=== PATIENT | female | born 1975 | race Caucasian/White ===

== ENCOUNTER 2020-05-08 15:41 | Outpatient (CLI) | payer BC | END 2020-05-08 15:42 | disposition home or self-care (01) | LOC: COV 15:41 | PROVIDERS: ATTEND Family Medicine | DX: R53.83 Other fatigue (principal); J02.9 Acute pharyngitis, unspecified; R09.81 Nasal congestion; Z20.828 Contact with and (suspected) exposure to other viral communicable diseases ==

== ENCOUNTER 2020-07-06 08:44 | Outpatient (CLI) | payer BC | END 2020-07-06 08:45 | disposition critical access hospital (66) | LOC: EMS 08:44 | PROVIDERS: ATTEND Surgery | DX: S89.92XA Unspecified injury of left lower leg, initial encounter (principal); W01.0XXA Fall on same level from slipping, tripping and stumbling without subsequent striking against object, initial encounter; Y93.02 Activity, running; Y92.89 Other specified places as the place of occurrence of the external cause | CPT/HCPCS: A0425; A0429 ==

== ENCOUNTER 2020-07-06 08:54 | Day surgery (SDC) | payer BC ==
[2020-07-06] MEDS ORDERED: HYDROmorphone 1 MG/ML CARPUJECT IVP STA (09:01)
[2020-07-06] MEDS ORDERED: ceFAZolin 1 GM in SODIUM CHLORIDE 0.9% MINIBAG 100 ML IV STA (09:02)
--- NOTE | 2020-07-06 09:03 | ED Physician Documentation ---
PD HPI LOWER EXT INJURY - Stated complaint Stated Complaint: FALL - History obtained from History obtained from: Patient, EMS - History of Present Illness PD HPI LOW EXT INJURY LOCATION: Left, Lower leg, Ankle Type of injury: Fall (slipped on ground when chasing after cat. Isolated injury to left lower leg above ankle.) Where injury occurred: Home Timing - onset: Today (just [employer]), Other (Had not had breakfast yet.) Timing - details: Abrupt onset, Still present Worsened by: Moving, Palpating, Other (unable to move even a little, not tried to stand or walk. Called EMS and brought here splinted.) Associated symptoms: No: Weakness, Numbness Contributing factors: No: Anticoagulated, Prior ortho surgery, Work related Similar symptoms before: Has not had sx before Recently seen: Not recently seen Review of Systems Constitutional: denies: Fever Nose: denies: Rhinorrhea / runny nose, Congestion Throat: reports: Sore throat (mild for several days, without adenopathy nor cough) Respiratory: denies: Cough GI: denies: Nausea, Vomiting, Diarrhea Skin: reports: Laceration (s) (has small opening on front lower leg.) Neurologic: denies: Focal weakness, Numbness PD PAST MEDICAL HISTORY - Past Medical History Cardiovascular: None Respiratory: None Neuro: None Endocrine/Autoimmune: None - Allergies Allergies/Adverse Reactions: Allergies Allergy/AdvReac Type Severity Reaction Status Date / Time NSAIDS (Non-Steroidal Allergy Unknown Verified 07/06/20 09:03 Anti-Inflamma - Living Situation Living Arrangement: reports: At home - Social History Does the pt smoke?: No Does the pt have substance abuse?: No - Family History Family history: reports: Non contributory PD ED PE NORMAL - Vitals Vital signs reviewed: Yes - General General: Alert and oriented X 3, Well developed/nourished, Other (appears in pain with any slight leg movement. ) - HEENT HEENT: Atraumatic - Neck Neck: Supple, no meningeal sign, No bony TTP - Cardiac Cardiac: RRR, No murmur - Respiratory Respiratory: Clear bilaterally, Other (no chestwall tenderness) - Abdomen Abdomen: Soft, Non tender - Derm Derm: Normal color, Warm and dry - Extremities Extremities: Other (Considerable tenderness with even slight movement in the mid lower leg on the left. There is angulation deformity with the foot and toes being about 15 to 20 degrees offline from the knee. There is a small circular puncture wound appearing in the lower third anterior tibia overlying the tenderness) - Neuro Neuro: Alert and oriented X 3, No motor deficit (Able to feel sensation in her toes and wiggle.), No sensory deficit, Normal speech Eye Opening: Spontaneous Motor: Obeys Commands Verbal: Oriented GCS Score: 15 Results - Vitals Vitals: Vital Signs - 24 hr 07/06/20 07/06/20 09:01 09:07 Temperature 36.9 C Heart Rate 65 76 Respiratory 22 17 Rate Blood Pressure 101/66 114/68 O2 Saturation 99 99 Oxygen O2 Source Room air - Rads (name of study) tib/fib Radiology: Prelim report reviewed (Spiral fractures of distal third tibia and proximal third fibula. ), See rad report PD MEDICAL DECISION MAKING - ED course Complexity details: reviewed results, considered differential, d/w patient, d/w qa consultant (Dr. Rudd, Ortho, who will come see the patient. ) Departure - Departure Disposition: ED Transfer to [facility] Clinical Impression: Fall from slip, trip, or stumble Qualifiers: Encounter type: initial encounter Qualified Code(s): W01.0XXA - Fall on same level from slipping, tripping and stumbling without subsequent striking against object, initial encounter Open tibial fracture Qualifiers: Encounter type: initial encounter Tibia location: shaft Open fracture type: open type I or II Fracture morphology: spiral Fracture alignment: displaced Laterality: left Qualified Code(s): S82.242B - Displaced spiral fracture of shaft of left tibia, initial encounter for open fracture type I or II Condition: Stable Record reviewed to determine appropriate education?: Yes
[2020-07-06] MEDS ORDERED: LACTATED RINGERS 1,000 ML IV STA (09:24)
[2020-07-06] MEDS ORDERED: ACETAMINOPHEN 1,000 MG/100 ML 100 ML IV ONE ×3 (09:25→12:39)
[2020-07-06 09:29] LABS: BASOPHILS # (AUTO) 0.1 10^3/uL (0.0-0.1); BASOPHILS % (AUTO) 0.7 %; EOSINOPHILS % (AUTO) 0.4 %; HGB - HEMOGLOBIN 14.3 g/dL (12.0-16.0); LYMPHOCYTES # (AUTO) 1.9 10^3/uL (1.5-3.5); LYMPHOCYTES % (AUTO) 26.3 %; MEAN CORPUSCULAR HEMOGLOBIN 28.7 pg (27.0-31.0); MEAN CORPUSCULAR HGB CONC 32.9 g/dL (32.0-36.0); MEAN PLATELET VOLUME 11.1 fL (7.9-10.8); MONOCYTES # (AUTO) 0.5 10^3/uL (0.0-1.0); MONOCYTES % (AUTO) 6.2 %; NEUTROPHILS # (AUTO) 4.8 10^3/uL (1.5-6.6); NEUTROPHILS % (AUTO) 65.8 %; PLT - PLATELET COUNT 256 10^3/uL (130-450); RED BLOOD COUNT 4.99 10^6/uL (4.20-5.40); RED CELL DISTRIBUTION WIDTH 12.5 % (12.0-15.0); WHITE BLOOD COUNT 7.3 x10^3/uL (4.8-10.8)
[2020-07-06 09:38] LABS: CALCIUM 8.8 mg/dL (8.5-10.3); CREATININE 0.8 mg/dL (0.4-1.0)
--- NOTE | 2020-07-06 09:44 | XRAY Report ---
PROCEDURE: Tib/Fib LT INDICATIONS: fall with lower leg pain, above ankle TECHNIQUE: 2 views of the tibia and fibula were acquired. COMPARISON: None. FINDINGS: Bones: There is a mildly displaced spiral fracture of the distal tibial shaft. There is also a mildl y displaced fracture of the proximal fibular shaft. No suspicious bony lesions. Soft tissues: No suspicious soft tissue calcifications or masses. IMPRESSION: 1. Fractures of the tibial and fibular shafts. Reviewed by: Boni Rodney MD on 07/06/2020 9:43 AM [facility] Approved by: Boni Rodney MD on 07/06/2020 9:43 AM [facility] Station ID: [id number]
[2020-07-06 10:25] LABS: C. PNEUMONIAE- RESP PCR PANEL NOT DETECTED
--- NOTE | 2020-07-06 10:50 | ANESTHESIA ---
Pre-Anesthesia VS, & Labs - Diagnosis open tibial fracture left - Procedure ORIF left open tibial fracture Vital Signs: Temp Pulse Resp BP Pulse Ox 36.9 C 69 18 124/76 98 07/06/20 10:40 07/06/20 10:40 07/06/20 10:40 07/06/20 10:40 07/06/20 10:40 Height: 5 ft 2 in Weight (kg): 65.771 kg Body Mass Index: 26.5 BMI Classification: Overweight - NPO >8 hours - Is Patient ?: No - Lab Results Current Lab Results: Laboratory Tests 07/06/20 09:27: Sodium 141, Potassium 4.3, Chloride 107, Carbon Dioxide 21, Anion Gap 13.0, BUN 9, Creatinine 0.8, Estimated GFR (MDRD) 78 L, Glucose 102 H, Calcium 8.8 07/06/20 09:27: WBC 7.3, RBC 4.99, Hgb 14.3, Hct 43.4, MCV 87.0, MCH 28.7, MCHC 32.9, RDW 12.5, Plt Count 256, MPV 11.1 H, Neut # (Auto) 4.8, Lymph # (Auto) 1.9, Grant # (Auto) 0.5, Eos # (Auto) 0.0, Baso # (Auto) 0.1, Absolute Nucleated RBC 0.00, Nucleated RBC % 0.0 Fish Bones: 07/06/20 09:27 07/06/20 09:27 Home Medications and Allergies Active Medications Lactated Ringer's (Lr) 1,000 mls @ 500 mls/hr IV .Q2H STA Stop: 07/06/20 11:23 Last Admin: 07/06/20 10:11 Dose: 500 mls/hr Documented by: Allergies/Adverse Reactions: Allergies Allergy/AdvReac Type Severity Reaction Status Date / Time NSAIDS (Non-Steroidal Allergy Unknown Verified 07/06/20 09:03 Anti-Inflamma Anes History & Medical History - Anesthetic History Anesthesia Complications: reports: No previous complications - Medical History Cardiovascular: reports: None Pulmonary: reports: None Gastrointestinal: reports: None Urinary: reports: None Neuro: reports: None Endocrine/Autoimmune: reports: None, Other (tibia fracture) Smoking Status: Never smoker - Surgical History Orthopedic: Other (shoulder surgery in past, ORIF right arm) Results - Other Other Results/Comments: waiting rapid covid Exam General: Alert Dental: WNL Mouth Opening: Greater than 4 Fingerbreadths Mallampati classification: I Thyromental Distance: greater than 6 cm Respiratory: Lungs clear Cardiovascular: Regular rate Plan Anesthesia Type: General, Popliteal Block Consent for Procedure(s) Verified and Reviewed: Yes Code Status: Attempt Resuscitation ASA classification: 1-Healthy patient Is this case an emergency?: Yes (open fracture)
--- NOTE | 2020-07-06 11:30 | CONSULTATION NOTE ---
Referring Provider Consult Date: 07/06/20 History - Past Medical History Cardiovascular: reports: None Respiratory: reports: None Neuro: reports: None Endocrine/Autoimmune: reports: None, Other (tibia fracture) GI: reports: None : reports: None MRSA Hx?: No - Past Surgical History Ortho: reports: Other (shoulder surgery in past, ORIF right arm) - Family & Social History Living arrangement: At home - POLST Patient has POLST: No Meds/Allgy - Allergies Allergies/Adverse Reactions: Allergies Allergy/AdvReac Type Severity Reaction Status Date / Time NSAIDS (Non-Steroidal Allergy Unknown Verified 07/06/20 09:03 Anti-Inflamma Exam - Vital Signs Vital Signs: Vital Signs x48h Temp Pulse Resp BP Pulse Ox 07/06/20 11:03 70 18 129/75 98 07/06/20 10:40 36.9 C 69 18 124/76 98 07/06/20 10:04 37.3 C 73 18 119/76 98 07/06/20 09:34 16 113/83 H 97 07/06/20 09:07 76 17 114/68 99 07/06/20 09:01 36.9 C 65 22 101/66 99 Conclusion/Plan - Lab Results Fish Bones: 07/06/20 09:27 07/06/20 09:27
--- NOTE | 2020-07-06 11:34 | CONSULTATION NOTE ---
Referring Provider Consult Date: 07/06/20 Chief Complaint - Chief Complaint Chief Complaint: Left lower leg pain History of Present Illness - Admitted From Admitted From:: ER - History Obtained From History obtained from: Patient - History of Present Illness HPI Comment/Other: I saw this healthy 45-year-old in consultation in the emergency room with regards to her left lower leg injury. She slipped and sustained a twisting injury to the lower leg. Immediate onset of the lower leg. Obvious deformity. There was a small open wound at the distal third. Unable to weight-bear.She was seen in the emergency room, where radiographs revealed a left tib-fib fracture. She received intravenous antibiotics. Denies any numbness or tingling to the foot. Denies any calf pain. 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 : reports: None HEENT: reports: None Psych: reports: None Musculoskeletal: reports: None Derm: reports: None MRSA Hx?: No - Past Surgical History Ortho: reports: Other (shoulder surgery in past, ORIF right arm) - Family & Social History Living arrangement: At home - POLST Patient has POLST: No Meds/Allgy - Allergies Allergies/Adverse Reactions: Allergies Allergy/AdvReac Type Severity Reaction Status Date / Time NSAIDS (Non-Steroidal Allergy Severe Unknown Verified 07/06/20 11:34 Anti-Inflamma Review of Systems - Other Findings Other Findings: Complete 12 point review of systems is otherwise negative Exam - Vital Signs Reviewed Vital Signs: Yes Vital Signs: Vital Signs x48h Temp Pulse Resp BP Pulse Ox 07/06/20 11:03 70 18 129/75 98 07/06/20 10:40 36.9 C 69 18 124/76 98 07/06/20 10:04 37.3 C 73 18 119/76 98 07/06/20 09:34 16 113/83 H 97 07/06/20 09:07 76 17 114/68 99 07/06/20 09:01 36.9 C 65 22 101/66 99 - Physical Exam General Appearance: positive: No acute distress, Alert Eyes Bilateral: positive: Normal inspection, PERRL ENT: positive: ENT inspection nml, Pharynx nml, No signs of dehydration Neck: positive: Nml inspection, Thyroid nml, No JVD, Trachea midline Respiratory: positive: Chest non-tender, No respiratory distress, Breath sounds nml Cardiovascular: positive: Regular rate & rhythm, No murmur, No gallop Peripheral Pulses: positive: 2+ Abdomen: positive: Non-tender Skin: positive: Other (Small punctate inside out wound at the junction of the mid and distal thirds of the tibia) Extremities: positive: Other (Minimal deformity. Tender at the junction of the mid and distal third tibia, junction of mid and proximal thirds of the fibula. Normal knee and ankle examination.Compartments are soft.) Neurologic/Psychiatric: positive: Oriented x3, Motor nml, Sensation nml Conclusion/Plan - Diagnosis Diagnosis: Open left tibia and fibular fractures - Plan Plan: We have discussed both operative and non-operative management today. I have recommended intramedullary nailing of the left tibia.We have discussed the pros and cons of surgery, including but not limited to the risk of ongoing pain, infection, blood loss, and nerve or blood vessel damage. We have also discussed strategies for prevention of infection, perioperative pain management and prevention of blood clots. She has and anaphylaxis to anti-inflammatories, and will therefore require either Lovenox or Xarelto for DVT prophylaxis postoperativelyAfter discussion of the risks and benefits of surgery, the patient has elected to proceed with Left tibia intramedullary nailing. We have discussed the risk of compartment syndrome and potential need for fasciotomies.Consent has been signed and patient has been marked - Lab Results Fish Bones: 07/06/20 09:27 07/06/20 09:27 - Diagnostic Imaging Results Diagnostic Imaging Results: positive: Read independently (I personally reviewed the radiographic images. Short oblique fracture of the tibia at the junction of mid and distal thirds with associated fibular fracture)
[2020-07-06] MEDS ORDERED: GABAPENTIN 300 MG CAPSULE PO SCH (12:00)
[2020-07-06] MEDS ORDERED: DEXAMETHASONE 4 MG/ML VIAL IVP ONE (12:39)
[2020-07-06] MEDS ORDERED: KETAMINE 500 MG/10 ML VIAL IVP ONE (12:39)
[2020-07-06] MEDS ORDERED: LIDOCAINE-MPF 2% 5 ML VIAL IM ONE (12:39)
[2020-07-06] MEDS ORDERED: ONDANSETRON 4 MG/2 ML VIAL IVP ONE (12:39)
[2020-07-06] MEDS ORDERED: fentaNYL 100 MCG/2 ML VIAL IVP ONE (12:39)
[2020-07-06] MEDS ORDERED: MIDAZOLAM 2 MG/2 ML VIAL IVP ONE (12:39)
[2020-07-06] MEDS ORDERED: PROPOFOL 200 MG/20 ML VIAL IVP ONE (12:39)
[2020-07-06] MEDS ORDERED: ceFAZolin 2 GM in SODIUM CHLORIDE 0.9% 100ML 100 ML IV ONE ×2 (13:00→21:00)
[2020-07-06] MEDS ORDERED: ROPIVACAINE 0.5% PF 20 ML AMPULE ONE (13:25)
[2020-07-06] MEDS ORDERED: ROPIVACAINE 0.5% PF 20 ML AMPULE SUBQ ONE ×3 (13:26→14:00)
[2020-07-06] MEDS ORDERED: LACTATED RINGERS 1,000 ML IV ONE ×2 (14:22→15:00)
--- NOTE | 2020-07-06 14:24 | OPERATIVE REPORT ---
Operative Report - General Procedure Date: 07/06/20 Planned Procedure: 1. Irrigation and debridement left lower leg 2. Intramedullary nailing left tibia Pre-Op Diagnosis: Open left tibia and fibular fractures Procedure Performed: Same Post Op Diagnosis: Grade 1 compound fracture left tibia with associated fibular fracture - Procedure Note Primary Surgeon: Tobin Anesthesia Technique: General ET tube Estimated Blood Loss (mL): 150 Findings: Implant: [employer] tibial nail 8.5 x 320 mm - Other Other Information/Narrative: Preamble: this healthy 45-year-old has a twisting injury to the left ankle, sustaining an open fracture of her left tibia and fibula. Patient was seen in the emergency room. She received intravenous antibiotics for prophylaxis of infection. Risks and benefits of surgery were discussed and the patient agreed to proceed with intramedullary nailing. Surgical site was confirmed and marked. Consent was signed. Operative note: Patient was brought to the operating room and general anesthetic was administered. Placed in supine position on the table. Tourniquet around the left thigh. Patient received intravenous antibiotics for prophylaxis of infection. Leg was then prepped and draped in usual sterile fashion. Surgical timeout was completed, verifying patient procedure and side. Small inside-out puncture wound was then extended proximally and distally slightly to expose the fracture site. Bone ends were brushed With a sterile toothbrush. Wound was then thoroughly irrigated with 3 L normal saline on gravity. Small stab incision was then made over the anterolateral lower leg and reduction clamp was then applied to reduce the fracture. Longitudinal incision was then made over the patellar tendon. Patellar tendon divided in line with its fibers in the midline. Guidewire was then advanced into proximal tibia under fluoroscopic guidance. Position was confirmed on fluoroscopy. Proximal tibia was then reamed. [place]-tipped guidewire was then advanced down the tibial canal to the level of the ankle. Position was confirmed on fluoroscopy. Measured to the 330 mm. The tibia was then sequentially reamed up to a final 10 mm reamer. An 8.5x3 and 20 mm nail was in selected and fully seated using a mallet. Position and reduction confirmed on fluoroscopy. Distally a single anterior to posterior locking screw was then inserted. Nail was backed up to compress the fracture site. Proximally using the target device a single static oblique locking screw was then placed. Again position and reduction was confirmed on fluoroscopy. Wounds thoroughly irrigated normal saline. Distally incisions were closed with kashmir. Locking screw stab incisions closed with k[place]mir. Patellar tendon split closed with #1 Vicryl. Skin closed with kashmir. Incisional sites and knee itself were infiltrated with ropivacaine. Sterile dressings were then applied. Patient was transferred to regular hospital bed taken to recovery room stable condition with no intraoperative complications. Estimate blood loss ap proximately 150 cc. Postoperative plan: Check x-ray in recovery. Admit for observation overnight and due to risk of compartment syndrome. Ice and elevate the leg. Weightbearing as tolerated. Discharge home tomorrow. Patient will require either Xarelto or Lovenox for DVT prophylaxis given her Anaphylaxis to anti- inflammatories. Oral antibiotics for 1 week for prophylaxis against infection given the open nature of the fracture.Follow-up in 10 to 14 days For wound check.Follow-up in 6 weeks with radiographs of the left tib-fib.
[2020-07-06] MEDS ORDERED: HYDROmorphone 2 MG/ML VIAL IVP PRN (14:25)
[2020-07-06] MEDS ORDERED: oxyCODONE 5 MG TABLET PO PRN (14:25)
[2020-07-06] MEDS ORDERED: MORPHINE 2 MG/ML CARPUJECT IVP PRN (14:33)
[2020-07-06] MEDS ORDERED: HYDROmorphone 0.5 MG/0.5 ML SYRINGE IVP PRN (14:33)
[2020-07-06] MEDS ORDERED: ePHEDrine 50 MG/ML VIAL IVP PRN (14:33)
[2020-07-06] MEDS ORDERED: ONDANSETRON 4 MG/2 ML VIAL IVP PRN (14:33)
[2020-07-06] MEDS ORDERED: METOCLOPRAMIDE 10 MG/2 ML VIAL IVP PRN (14:33)
[2020-07-06] MEDS ORDERED: NALOXONE 0.4 MG/ML VIAL IVP PRN (14:33)
[2020-07-06] MEDS ORDERED: ATROPINE ABBOJECT 1 MG/10 ML SYRINGE IVP PRN (14:33)
[2020-07-06] MEDS ORDERED: fentaNYL 100 MCG/2 ML VIAL IVP PRN (14:33)
[2020-07-06] MEDS ORDERED: HYDROmorphone 0.5 MG/0.5 ML SYRINGE ONE ×2 (14:40→14:46)
--- NOTE | 2020-07-06 14:40 | ANESTHESIA POST OP EVALUATION ---
Anesthesia Post Eval - Post Anesthesia Eval Vitals: Last Vital Signs Temp 37.4 C 07/06/20 14:35 Pulse 68 07/06/20 14:35 Resp 12 07/06/20 14:35 BP 127/79 07/06/20 14:35 Pulse Ox 100 07/06/20 14:35 CV Function Including HR & BP: positive: Stable Pain Control: positive: Satisfactory Nausea & Vomiting: positive: Negative Mental Status: positive: Patient Participates Respiratory Status: Airway Patent Hydration Status: Satisfactory Anesthesia Complications: positive: None
[2020-07-06] MEDS ORDERED: LACTATED RINGERS 1,000 ML IV SCH (15:00)
--- NOTE | 2020-07-06 16:24 | XRAY Report ---
PROCEDURE: OR C-Arm Procedure INDICATIONS: ORIF LEFT TIBIA TECHNIQUE: 5 views, intraoperative, documenting placement of a long medullary shagufta from proximal tibia almost to the ankle joint level. COMPARISON: 07/06/2020 tibia/fibula plain films reviewed.. FINDINGS: The medullary shagufta is centrally positioned through the tibia, crossing the area of diagonal fracture i nvolving the junction of the middle and distal thirds of the tibia, with a transverse fixation screw superiorly establishing fixed position with the fracture planes in virtual anatomic alignment for porsha ling. IMPRESSION: Excellent anatomic alignment established by medullary shagufta, fixed superiorly, crossing the fracture pl ane through the distal tibia, for healing. Reviewed by: Arsen Hutchison MD on 07/06/2020 4:23 PM PST Approved by: Arsen Hutchison MD on 07/06/2020 4:23 PM PST Station ID: [id number]
[2020-07-06] MEDS: ACETAMINOPHEN 500 MG TABLET PO SCH (16:27)
[2020-07-06] MEDS: LACTATED RINGERS 1,000 ML IV SCH (16:30)
--- NOTE | 2020-07-06 16:41 | XRAY Report ---
PROCEDURE: Tib/Fib LT INDICATIONS: postop TECHNIQUE: 2 views of the tibia and fibula were acquired. COMPARISON: None FINDINGS: Bones: Multiple views of the right tibia and fibula were performed status post intramedullary shagufta fix ation of a distal tibial fracture. There is also a minimally displaced fracture of the proximal fibul a. Intramedullary shagufta appears in good position with anatomic alignment of the tibia. Soft tissues: N o suspicious soft tissue calcifications or masses. IMPRESSION: Postoperative changes of ORIF of the left tibia. Reviewed by: Stefano Sung on 07/06/2020 4:40 PM PST Approved by: Stefano Sung on 07/06/2020 4:40 PM PST Station ID: [id number]
[2020-07-06] MEDS: oxyCODONE 5 MG TABLET PO PRN ×2 (19:36→20:58)
[2020-07-07] MEDS: ACETAMINOPHEN 500 MG TABLET PO SCH ×3 (02:30→13:04)
[2020-07-07] MEDS: LACTATED RINGERS 1,000 ML IV SCH (02:30)
[2020-07-07] MEDS: oxyCODONE 5 MG TABLET PO PRN ×2 (08:17→10:08)
[2020-07-07] MEDS ORDERED: DOCUSATE SODIUM 250 MG CAPSULE PO SCH (09:00)
[2020-07-07] MEDS ORDERED: SENNA 8.6 MG TABLET PO SCH (09:00)
[2020-07-07] MEDS ORDERED: RIVAROXABAN 10 MG TABLET PO STA (11:02)
--- NOTE | 2020-07-07 11:34 | PROVIDER PROGRESS NOTE ---
Subjective - Prog Note Date Prog Note Date: 07/07/20 - Subjective Pt reports feeling: Improved (Pain reasonably well controlled. No numbness or tingling to the foot. Denies any calf pain.) Objective - Vital Signs/Intake & Output Reviewed Vital Signs: Yes Vital Signs: Vital Signs x48h Temp Pulse Resp BP Pulse Ox 07/07/20 10:00 36.4 C L 69 18 102/62 100 Intake & Output: Intake & Output 07/04/20 07/05/20 07/06/20 07/07/20 23:59 23:59 23:59 23:59 Intake Total 1759 1000 Output Total 700 1100 Balance 1059 -100 - Objective General Appearance: positive: No acute distress Eyes Bilateral: positive: Normal inspection Respiratory: positive: No respiratory distress Cardiovascular: positive: Regular rate & rhythm Skin: positive: Other (dressings intact) Extremities: positive: Other (Ankle and knee motion well-tolerated. Compartments are supple and nontender. No pain with passive stretch.) Neurologic/Psychiatric: positive: Oriented x3, Motor nml, Sensation nml - Lab Results Fish Bones: 07/06/20 09:27 07/06/20 09:27 Assessment/Plan - Problem List (1) Open tibial fracture Impression: Doing well postop day 1. No signs of compartment syndrome. Mobilizing with physical therapy.Discharge home today. Ice and elevate the leg. Boot for comfort only. Weightbearing as tolerated. No restrictions to activity. Oral Keflex and Xarelto on discharge. Follow-up in 10 to 14 days for wound check and removal of kashmir. Follow-up in 6 weeks with radiographs of the Lower leg Qualifiers: Encounter type: initial encounter Tibia location: shaft Open fracture type: open type I or II Fracture morphology: spiral Fracture alignment: displaced Laterality: left Qualified Code(s): S82.242B - Displaced spiral fracture of shaft of left tibia, initial encounter for open fracture type I or II
[2020-07-07 13:15] VITALS: BP 109/69
== END 2020-07-07 13:00 | disposition home or self-care (01) ==
LOC: EDUNIT# → ED 08:54 → SDS 11:48 → MS2 13:28 → SDS 07-07 13:00
PROVIDERS: ATTEND Orthopaedic Surgery
DX: S82.242B Displaced spiral fracture of shaft of left tibia, initial encounter for open fracture type I or II (principal); S82.832B Other fracture of upper and lower end of left fibula, initial encounter for open fracture type I or II; W01.0XXA Fall on same level from slipping, tripping and stumbling without subsequent striking against object, initial encounter; Z20.828 Contact with and (suspected) exposure to other viral communicable diseases
CPT/HCPCS: 0202U; 27759; 36415; 73590; 80048; 85025; 96365; 96375; 97161; 99284; 99285; A9270; J0131; J1170; J7120

== ENCOUNTER 2020-09-03 09:30 | Outpatient (CLI) | payer BC ==
--- NOTE | 2020-09-03 14:57 | XRAY Report ---
PROCEDURE: Tib/Fib LT INDICATIONS: POST OP CARE TECHNIQUE: 2 views of the tibia and fibula were acquired. COMPARISON: Left lower leg radiographs dated 07/06/2020 FINDINGS: Bones: Postsurgical changes are again seen from tibial fracture fixation with an intramedullary nail with proximal and distal locking screws. Lucency is again seen along the distal tibial fracture line with stable alignment. The previously seen proximal fibular shaft fracture demonstrates mild callus f ormation, compatible with interval healing changes. Portions of the fibular fracture line are still v isualized. Soft tissues: No suspicious soft tissue calcifications or masses. IMPRESSION: Stable postsurgical changes from distal tibial fracture fixation with unchanged alignment. Mild progr essive healing changes are seen in the distal tibial and proximal fibular fractures with continued vi sualization of the fracture lines. Reviewed by: Leoncio Quijano MD on 09/03/2020 2:56 PM PST Approved by: Leoncio Quijano MD on 09/03/2020 2:56 PM PST Station ID: [id number]
== END 2020-09-03 23:59 | disposition home or self-care (01) ==
LOC: DI.N 09:30
PROVIDERS: ATTEND Physician Assistant
DX: Z48.89 Encounter for other specified surgical aftercare (principal); S82.302D Unspecified fracture of lower end of left tibia, subsequent encounter for closed fracture with routine healing; S82.832D Other fracture of upper and lower end of left fibula, subsequent encounter for closed fracture with routine healing

== ENCOUNTER 2021-01-17 13:29 | Outpatient (CLI) | payer BC ==
--- NOTE | 2021-01-18 11:56 | Mammography Report ---
BILATERAL DIGITAL SCREENING MAMMOGRAM 3D/2D: 01/17/2021 CLINICAL: Routine screening. Comparison is made to exam dated: 04/06/2019 mammogram. The tissue of both breasts is heterogeneousl y dense. This may lower the sensitivity of mammography. No significant masses, calcifications, or other findings are seen in either breast. There has been no significant interval change. IMPRESSION: NEGATIVE There is no mammographic evidence of malignancy. A 1 year screening mammogram is recommended. This exam was interpreted at Station ID: [id number]. NOTE: For mammograms, a report in lay terms will be sent to the patient. Approximately 15% of breast malignancies will not be visualized mammographically. In the management of a palpable breast mass, a negative mammogram must not discourage biopsy of a clinically suspicious lesion. Electronically Signed By: Mayra griffith/harriett:01/17/2021 16:00:58 ACR BI-RADS Category 1: Negative [id number] PARENCHYMAL PATTERN: (D) - The breast(s) demonstrate(s) heterogeneously dense fibroglandular chaim palmer. BI-RADS CATEGORY: (1) - 1 RECOMMENDATION: (ANNUAL) - Recommend routine annual screening mammography. [id number] 1 year screening LATERALITY: (B)
== END 2021-01-17 13:30 | disposition home or self-care (01) ==
LOC: DI 13:29
PROVIDERS: ATTEND Physician Assistant Medical
DX: Z12.31 Encounter for screening mammogram for malignant neoplasm of breast (principal)

== ENCOUNTER 2021-03-12 08:14 | Outpatient (CLI) | payer BC ==
--- NOTE | 2021-03-12 17:39 | XRAY Report ---
PROCEDURE: Tib/Fib LT INDICATIONS: DISPLACED SPIRAL FX OF SHAFT OF L TIBIA TECHNIQUE: 2 views of the tibia and fibula were acquired. COMPARISON: Prior lower leg series dated 09/03/2020 FINDINGS: Bones: Stable positioning of tibial intramedullary shagufta and interlocking fixation screws. There is bee n further healing of distal tibial shaft fracture as well as the proximal fibular shaft fracture or f racture lucencies are less distinct. Groundglass arthritic changes.. No suspicious bony lesions. Soft tissues: No suspicious soft tissue calcifications or masses. IMPRESSION: Stable postsurgical sequelae and further healing of distal tibial and proximal fibular shaft fracture s. Reviewed by: DIANA Dennis on 03/12/2021 5:37 PM PDT Approved by: Arsen Hutchison MD on 03/12/2021 5:37 PM PDT Station ID: [id number]
== END 2021-03-12 23:59 | disposition home or self-care (01) ==
LOC: DI.N 08:14
PROVIDERS: ATTEND Orthopaedic Surgery
DX: S82.242B Displaced spiral fracture of shaft of left tibia, initial encounter for open fracture type I or II (principal)

== ENCOUNTER 2021-05-03 15:06 | Outpatient (CLI) | payer BC | END 2021-05-03 15:07 | disposition home or self-care (01) | LOC: COV 15:06 | PROVIDERS: ATTEND Family Medicine | DX: R05 Cough (principal); R07.0 Pain in throat; R09.81 Nasal congestion; J34.89 Other specified disorders of nose and nasal sinuses; Z20.822 Contact with and (suspected) exposure to COVID-19 ==

== ENCOUNTER 2021-09-26 03:16 | Emergency (ER) | payer BC ==
[2021-09-26] MEDS ORDERED: diphenhydrAMINE INJ 50 MG/ML VIAL IVP STA ×2 (04:04→04:40)
[2021-09-26] MEDS ORDERED: ACETAMINOPHEN 325 MG TABLET PO STA (04:04)
[2021-09-26] MEDS ORDERED: SODIUM CHLORIDE 0.9% 1,000 ML IV STA (04:05)
[2021-09-26] MEDS ORDERED: SUMAtriptan 6 MG/0.5 ML VIAL SUBQ STA (04:05)
[2021-09-26] MEDS ORDERED: LORazepam 2 MG/ML VIAL IVP STA (04:16)
[2021-09-26] MEDS: METOCLOPRAMIDE 10 MG/2 ML VIAL IVP STA ×2 (04:43→07:53)
--- NOTE | 2021-09-26 04:44 | ED Physician Documentation ---
History of Present Illness - Stated complaint Stated Complaint: MIGRANE - Chief complaint Chief Complaint: Heent - History obtained from History obtained from: Patient - Additonal information Additional information: 46yF with pmh nearsightedness in L eye p/w gradual onset pain behind the L eye, photophobia, and L frontal headache, constant over the past 3 days. patient normally wears corrective lenses. did wear contacts about a week ago. denies trauma to the eye or known foreign body though she does sleep with her dogs. Review of Systems Ten Systems: 10 systems reviewed and negative Constitutional: denies: Fever, Chills Eyes: reports: Photophobia, Irritation GI: denies: Nausea, Vomiting Musculoskeletal: denies: Neck pain Neurologic: reports: Headache PD PAST MEDICAL HISTORY - Past Medical History Past Medical History: Yes Cardiovascular: None Respiratory: None Neuro: None Endocrine/Autoimmune: Other GI: None SERVICE COUNTER CASHIER: None : None HEENT: None Psych: None Musculoskeletal: None Derm: None - Past Surgical History Past Surgical History: Yes Ortho: Other /SERVICE COUNTER CASHIER: section - Present Medications Home Medications: Ambulatory Orders Medication Instructions Recorded Confirmed Mineral Oil/Petrolatum,White 3.5 gm OP QPM #1 bottle 09/26/21 [Lubricant Pm Eye Ointment] Ofloxacin 0.3% Ophth Drops 2 drops LEFTEYE Q4H #5 ml 09/26/21 [Ocuflox 0.3% Ophth Drops] - Allergies Allergies/Adverse Reactions: Allergies Allergy/AdvReac Type Severity Reaction Status Date / Time NSAIDS (Non-Steroidal Allergy Severe Unknown Verified 09/26/21 03:49 Anti-Inflamma - Social History Does the pt smoke?: No Smoking Status: Never smoker Does the pt drink ETOH?: No Does the pt have substance abuse?: No - Immunizations Immunizations are current?: Yes - POLST Patient has POLST: No PD ED PE NORMAL - Vitals Vital signs reviewed: Yes - General General: Alert and oriented X 3, No acute distress, Well developed/nourished - HEENT HEENT: Atraumatic, Moist mucous membranes, Other (patient unable to open eye without extreme tearing, intense emotional distress) - Neck Neck: Supple, no meningeal sign - Derm Derm: Normal color, Warm and dry - Neuro Neuro: No motor deficit, No sensory deficit - Psych Psych: Other (tearful affect) Results - Vitals Vitals: Vital Signs - 24 hr 09/26/21 09/26/21 09/26/21 03:47 04:35 04:54 Temperature 35.9 C L Heart Rate 76 68 Respiratory 16 24 16 Rate Blood Pressure 106/64 146/93 H O2 Saturation 99 100 09/26/21 09/26/21 06:22 06:35 Temperature Heart Rate 68 Respiratory 12 14 Rate Blood Pressure 100/73 O2 Saturation 99 Oxygen O2 Source Room air PD MEDICAL DECISION MAKING - ED course ED course: LANE [facility]car[facility] called me into the room because patient thinks she may be having a reaction to imitrex 5 min s/p injection. experiencing throat and chest tightness but denies soa, dizziness, itchiness, rash. Patient is tearful on general reevaluation, airway patent on exam, oropharyngeal exam unremarkable. good air flow on auscultation of upper airways. lungs ctab. Patient declined reglan. receiving ativan now. Patient extremely anxious and tearful when left eye is approached. was able to force tetracaine into eye and I don't believe she has a corneal abrasion on franklin lamp testing but unable to shanna eyelid and unable to get her to rotate eyeball during exam, so technically limited. patient unable to keep eye open in light, unable to test visual acuity. We apparently don't have any cycloplegic drops in the hospital. patient states she does not think she'll be able to tolerate IOP testing. Patient stating her tongue is now numb after tetracaine instillation in L eye. extremely anxious, stating "I'm a mess". Was finally able to get a good exam in. IOP in L eye was 14 and then 18. visual acuity with corrective lens was 20/20 in R eye and 20/40 in L eye. patient to f/u with ophtho today. strict return precautions given. Departure - Departure Disposition: 01 Home, Self Care Clinical Impression: Eye pain, Headache Condition: Good Instructions: ED Headache Migraine Prescriptions: Mineral Oil/Petrolatum,White [Lubricant Pm Eye Ointment] 3.5 gm OP QPM #1 bottle Ofloxacin 0.3% Ophth Drops [Ocuflox 0.3% Ophth Drops] 2 drops LEFTEYE Q4H #5 ml Comments: You were seen in the ED for evaluation of left frontal headache and left eye pain. A franklin lamp exam was done to check for abrasion on the eye but was technically limited due to pain, so I am prescribing antibiotic eye drops and nighttime ointment and would like to have you follow up with ophthalmology today. Return to the ED immediately if you are unable to find an pasting machine operator to examine you. Note that your intraocular pressure of the left eye was measured to be 14 and 18, which is normal. Your visual acuity was 20/20 in the right eye and 20/40 in the left eye when wearing corrective lenses. Please return to the ED if you have new or worsening symptoms or other concern.
[2021-09-26] MEDS ORDERED: CYCLOPENTOLATE 1% OPHTH DROPS 2 ML LEFTEYE STA (05:21)
[2021-09-26] MEDS ORDERED: CYCLOPENTOLATE 2% OPHTH DROPS 2 ML LEFTEYE STA (05:21)
[2021-09-26 06:39] VITALS: BP 100/73
== END 2021-09-26 08:30 | disposition home or self-care (01) ==
LOC: ED 03:16
DX: H57.12 Ocular pain, left eye (principal); R51.9 Headache, unspecified
CPT/HCPCS: 96372; 96374; 96375; 99282; 99283; J1200; J2060; J3490

== ENCOUNTER 2021-11-14 15:29 | Emergency (ER) | payer BC ==
--- NOTE | 2021-11-14 15:37 | ED Physician Documentation ---
PD HPI ABD PAIN - Stated complaint Stated Complaint: ABD PX,RASH - Chief complaint Chief Complaint: Abd Pain - History obtained from History obtained from: Patient - History of Present Illness Timing - onset: How many hours ago (2) Timing - duration: Hours (2) Timing - details: Abrupt onset, Still present Quality: Cramping, Aching, Pain Location: LLQ Radiation: No: Chest, Improved by: No: Laying still, Vomiting Worsened by: No: Moving, Breathing Associated symptoms: Nausea, Vomiting (once), Vaginal bleeding, Other (LMP 2 weeks ago, denies possible .). No: Fever, Diarrhea, Constipation, Dysuria, Chest pain, Loss of appetite Review of Systems Constitutional: denies: Fever, Chills Nose: denies: Rhinorrhea / runny nose, Congestion Throat: denies: Sore throat Respiratory: denies: Cough GI: reports: Abdominal Pain, Nausea, Vomiting. denies: Constipation, Diarrhea : reports: LMP (2 weeks ago, normal for her.). denies: Dysuria, Frequency, Discharge Skin: denies: Rash Musculoskeletal: denies: Neck pain, Back pain Neurologic: denies: Focal weakness, Numbness, Near syncope, Headache PD PAST MEDICAL HISTORY - Past Medical History Cardiovascular: None Respiratory: None Neuro: None Endocrine/Autoimmune: Other GI: None HR INTERNSHIP: None : None HEENT: None Psych: None Musculoskeletal: None Derm: None - Past Surgical History Past Surgical History: Yes Ortho: Other /HR INTERNSHIP: section - Present Medications Home Medications: Ambulatory Orders Medication Instructions Recorded Confirmed No Known Home Medications 11/14/21 11/14/21 - Allergies Allergies/Adverse Reactions: Allergies Allergy/AdvReac Type Severity Reaction Status Date / Time NSAIDS (Non-Steroidal Allergy Severe Unknown Verified 09/26/21 03:49 Anti-Inflamma - Social History Does the pt smoke?: No Smoking Status: Never smoker Does the pt drink ETOH?: No Does the pt have substance abuse?: No - Immunizations Immunizations are current?: Yes - POLST Patient has POLST: No PD ED PE NORMAL - Vitals Vital signs reviewed: Yes - General General: Alert and oriented X 3, Well developed/nourished, Other (appears in considerable pain with knees drawn up. ) - HEENT HEENT: Pharynx benign - Neck Neck: Supple, no meningeal sign, No adenopathy - Cardiac Cardiac: RRR, No murmur - Respiratory Respiratory: Clear bilaterally - Abdomen Abdomen: Normal bowel sounds, Soft, Non distended, No organomegaly - Female Female : Deferred - Rectal Rectal: Deferred - Back Back: No CVA TTP - Derm Derm: Normal color, Warm and dry - Extremities Extremities: No edema, No calf tenderness / cord - Neuro Neuro: Alert and oriented X 3, No motor deficit, Normal speech Results - Vitals Vitals: Vital Signs - 24 hr 11/14/21 11/14/21 11/14/21 15:30 15:33 17:17 Temperature 36.3 C L 36.3 C L Heart Rate 90 90 65 Respiratory 20 20 16 Rate Blood Pressure 150/97 H 150/97 H 105/66 O2 Saturation 99 99 100 Oxygen O2 Source Room air - Labs Labs: Laboratory Tests 11/14/21 11/14/21 11/14/21 16:05 16:05 16:45 WBC 14.5 H RBC 5.01 Hgb 14.2 Hct 42.5 MCV 84.8 MCH 28.3 MCHC 33.4 RDW 12.6 Plt Count 279 MPV 11.2 H Neut # (Auto) 12.1 H Lymph # (Auto) 1.6 Andrews # (Auto) 0.5 Eos # (Auto) 0.1 Baso # (Auto) 0.0 Absolute Nucleated RBC 0.00 Nucleated RBC % 0.0 Sodium 137 Potassium 3.6 Chloride 101 Carbon Dioxide 25 Anion Gap 11.0 BUN 12 Creatinine 0.9 Estimated GFR (MDRD) 68 L Glucose 116 H Calcium 9.1 Total Bilirubin 0.9 AST 16 ALT 18 Alkaline Phosphatase 81 Total Protein 7.2 Albumin 4.1 Globulin 3.1 Albumin/Globulin Ratio 1.3 Lipase 38 Urine Color YELLOW Urine Clarity CLEAR Urine pH 5.5 Ur Specific [place] >=1.030 H Urine Protein NEGATIVE Urine Glucose (UA) NEGATIVE Urine Ketones NEGATIVE Urine Occult Blood NEGATIVE Urine Nitrite NEGATIVE Urine Bilirubin NEGATIVE Urine Urobilinogen 0.2 (NORMAL) Ur Leukocyte Esterase NEGATIVE Ur Microscopic Review NOT INDICATED Urine Culture Comments NOT INDICATED Urine HCG, Qual NEGATIVE PD MEDICAL DECISION MAKING - ED course Complexity details: re-evaluated patient (patient states she had abrupt cessation of the pain while here. Recheck abd is not tender. Futher discussion shared decision to defer imaging, given the abrupt improvement.), considered differential (abrupt severe left lower abd pain this afternoon. ), d/w patient Departure - Departure Disposition: 01 Home, Self Care Clinical Impression: Sudden onset of severe abdominal pain Condition: Stable Record reviewed to determine appropriate education?: Yes Instructions: ED Abdominal Pain Female Non-Specific Abdominal Pain Comments: Your urine test is without any signs of infection or blood. test is negative. Your blood count shows a slight elevation of your white cell count which sometimes signifies an infectious process. However can elevate just from the adrenaline of pain. It is unclear the cause of your pain so abruptly on and then off. Considerations could be a small kidney stone that is passed. A gas cramp or such could hurt similarly but unusual for her to be so abrupt on and off. Also consider ovarian pain as a possibility. Since your pain is completely gone at this time, it does seem reasonable to forego any further evaluation or imaging with the lower likelihood of having an abnormal finding. See how you do through this evening and tomorrow. Return if onset of pain again or fever, nausea, notable diarrhea or bloody stools or other concerns. Discharge Date/Time: 11/14/21 17:23
[2021-11-14] MEDS ORDERED: SODIUM CHLORIDE 0.9% 1,000 ML IV STA (15:53)
[2021-11-14] MEDS ORDERED: ONDANSETRON 4 MG/2 ML VIAL IVP STA (15:53)
[2021-11-14] MEDS ORDERED: HYDROmorphone 1 MG/ML CARPUJECT IVP STA (15:53)
[2021-11-14] MEDS ORDERED: diphenhydrAMINE INJ 50 MG/ML VIAL IVP STA (15:55)
[2021-11-14 16:10] LABS: BASOPHILS % (AUTO) 0.3 %; EOSINOPHILS # (AUTO) 0.1 10^3/uL (0.0-0.7); EOSINOPHILS % (AUTO) 0.5 %; HCT - HEMATOCRIT 42.5 % (37.0-47.0); HGB - HEMOGLOBIN 14.2 g/dL (12.0-16.0); LYMPHOCYTES # (AUTO) 1.6 10^3/uL (1.5-3.5); LYMPHOCYTES % (AUTO) 11.2 %; MEAN CORPUSCULAR HEMOGLOBIN 28.3 pg (27.0-31.0); MEAN CORPUSCULAR HGB CONC 33.4 g/dL (32.0-36.0); MEAN CORPUSCULAR VOLUME 84.8 fL (81.0-99.0); MEAN PLATELET VOLUME 11.2 fL (7.9-10.8); MONOCYTES # (AUTO) 0.5 10^3/uL (0.0-1.0); MONOCYTES % (AUTO) 3.5 %; NEUTROPHILS # (AUTO) 12.1 10^3/uL (1.5-6.6); NEUTROPHILS % (AUTO) 83.8 %; PLT - PLATELET COUNT 279 10^3/uL (130-450); RED BLOOD COUNT 5.01 10^6/uL (4.20-5.40); RED CELL DISTRIBUTION WIDTH 12.6 % (12.0-15.0); WHITE BLOOD COUNT 14.5 x10^3/uL (4.8-10.8)
[2021-11-14 16:27] LABS: ALBUMIN 4.1 g/dL (3.2-5.5); ALBUMIN/GLOBULIN RATIO 1.3 (1.0-2.2); BILIRUBIN,TOTAL 0.9 mg/dL (0.2-1.0); CALCIUM 9.1 mg/dL (8.5-10.3); CREATININE 0.9 mg/dL (0.4-1.0); POTASSIUM 3.6 mmol/L (3.5-5.0); TOTAL PROTEIN 7.2 g/dL (6.7-8.2)
[2021-11-14 16:59] LABS: BILIRUBIN,URINE NEGATIVE (NEGATIVE); GLUCOSE, URINE (UA) NEGATIVE (NEGATIVE); KETONES,URINE (UA) NEGATIVE (NEGATIVE); LEUKOCYTE ESTERASE, URINE NEGATIVE (NEGATIVE); NITRITE,URINE NEGATIVE (NEGATIVE); OCCULT BLOOD,URINE NEGATIVE (NEGATIVE); PH,URINE 5.5 PH (5.0-7.5); PROTEIN,URINE NEGATIVE (NEGATIVE); UROBILINOGEN,URINE 0.2 (NORMAL) E.U./dL (NORMAL)
[2021-11-14 17:05] LABS: CLARITY,URINE CLEAR (CLEAR); HCG UR QUAL NEGATIVE
[2021-11-14 17:17] VITALS: BP 105/66
== END 2021-11-14 17:23 | disposition home or self-care (01) ==
LOC: ED 15:29
DX: R10.32 Left lower quadrant pain (principal)
CPT/HCPCS: 36415; 80053; 81001; 81003; 81025; 83690; 85025; 87086; 99282; 99283